=== PATIENT | female | born 1950 ===

== ENCOUNTER 2019-10-17 18:00 | Inpatient (IN) | payer MEDICARE ==
[2019-10-17] MEDS ORDERED: PROAIR HFA8.5 G1 INH (18:18)
[2019-10-17] MEDS ORDERED: AMITRIPTYLINE100 MG PO (18:18)
[2019-10-17] MEDS ORDERED: STERAPRED 5MG 65 M1 PO (18:19)
[2019-10-17] MEDS ORDERED: OXYCODONE HCL E20 MG PO (18:21)
[2019-10-17] MEDS ORDERED: STERAPRED DS 1010 MG PO (18:40)
--- NOTE | 2019-10-17 18:44 | NUR ---
CALLED AND SPOKE WITH MARCY COTTRELL AND NOTIFIED HIM THAT PT HAS ARRIVED TO FLOOR. HE STATED TO ORDER DEXAMETHASONE 6MG PO ONE TIME. I VERBALIZED UNDERSTANDING. PT ALERT AND ORIENTED AND UPADLIB. O2 AT 4L VIA NC. WILL CONTINUE TO MONITOR.
--- NOTE | 2019-10-17 19:30 | NUR ---
PT IN BED, AAO X 2, RESP EVEN AND UNLABORED, NO DISTRESS NOTED, CL IN REACH, SR UP X 2.
[2019-10-17 20:29] VITALS: BP 111/81
[2019-10-18 03:42] VITALS: BP 137/76
[2019-10-18 06:20] LABS: HEMATOCRIT 33.8 % (36.0-48.0); HEMOGLOBIN 11.5 g/dL (12-16); MCH 34.5 pg (26.0-34.0); MCV 101.5 fL (80.0-100.0); MEAN PLATELET VOLUME 11.4 fL (7.4-10.4); RBC 3.33 10x6/uL (4.00-5.40); RDW 14.6 % (11.5-14.5); WBC 2.8 10x3/uL (4.8-10.8)
[2019-10-18 06:25] LABS: PLATELET COUNT 41 10x3/uL (130-400)
[2019-10-18 06:37] LABS: APTT 35.7 SECONDS (22.8-39.4); INR 1.67 (0.85-1.17); PROTIME 19.5 SECONDS (11.6-15.0)
[2019-10-18 06:47] LABS: LYMPHOCYTES 5 % (15-50); NEUTROPHILS 95 % (40-80)
[2019-10-18 06:48] LABS: PLATELET ESTIMATE DECREASED
[2019-10-18 06:53] LABS: CALC OSMOLALITY 270 mosm/kg (275-300); CALCIUM 7.6 mg/dL (8.5-10.1); CARBON DIOXIDE 22.6 mmol/L (21.0-32.0); CHLORIDE - SERUM 107 mmol/L (98-107); CREATININE - SERUM 0.7 mg/dL (0.6-1.3); GLUCOSE 132 mg/dL (74-106); MAGNESIUM - SERUM 1.8 mg/dL (1.8-2.4); POTASSIUM - SERUM 4.2 mmol/L (3.5-5.1); SODIUM 135 mmol/L (136-145); UREA NITROGEN 10 mg/dL (7-18); eGFR NON AFRICAN AMERICAN 88 mL/min (90-120)
[2019-10-18 09:35] VITALS: BP 107/58
[2019-10-18 17:25] LABS: BILIRUBIN NEGATIVE (NEGATIVE); KETONE NEGATIVE (NEGATIVE); NITRITE NEGATIVE (NEGATIVE); UROBILINOGEN NORMAL (NORMAL)
--- NOTE | 2019-10-18 18:04 | NUR ---
PT TALKING TO DAUGHTER ON CELL PHONE. PT UPSET BECAUSE DAUGHTER CANNOT BRING ITEMS FROM HOME FOR PT. PT IS COVID POSITIVE. ITEMS ARE WORK RELATED FOR PT. DAUGHTER DOES NOT WANT TO RISK EXPOSURE TO VIRUS. ATTEMPT TO CALM PT BUT PT GETS EMOTIONAL.
--- NOTE | 2019-10-18 19:25 | NUR ---
PATIENT IS RESTING IN BED. SHE IS ALERT AND ORIENTED. SHE IS SHORT OF BREATH WITH EXERTION. SHE IS ON ROOM AIR. WE WILL CONTINUE TO MONITOR HER RESPIRATORY STATUS.
[2019-10-19 01:22] VITALS: BP 132/68
--- NOTE | 2019-10-19 03:11 | NUR ---
PATIENT IS SLEEPING. SHE HAS GARBLE SPEECH. SHE CAN NOT ANSWER YES AND NO. I TALKED WITH THE CHARGE NURSE, AND SHE SAID NOT TO PUT THE NG TUBE BACK IN BECAUSE SHE WILL JUST PULL IT OUT AGAIN SINCE SHE IS CONFUSED.
--- NOTE | 2019-10-19 03:23 | NUR ---
PATIENT GOT UP TO THE BATHROOM AND PULLED OUT IV. BLOOD WAS ALL OVER FLOOR AND GOWN. GOWN CHANGED, AND FLOOR CLEANED UP. I HAVE ASKED FOR ASSISTANCE FOR NEW IV FOR IV FLUIDS AND ANTIBIOTICS. WE WILL CONTINUE TO MONITOR HER RESPIRATORY STATUS.
[2019-10-19 04:55] VITALS: BP 140/96
[2019-10-19 06:27] LABS: BASOPHILS 0.2 % (0-2); EOSINOPHILS 0 % (0-7); HEMATOCRIT 38.1 % (36.0-48.0); HEMOGLOBIN 12.8 g/dL (12-16); IMMATURE GRANULOCYTES 0.9 % (0-5); LYMPHOCYTES 5.6 % (15-50); MCH 34.4 pg (26.0-34.0); MCHC 33.6 g/dL (31.0-37.0); MCV 102.4 fL (80.0-100.0); MEAN PLATELET VOLUME 10.1 fL (7.4-10.4); MONOCYTES 4.1 % (2-11); NEUTROPHILS 89.2 % (40-80); PLATELET COUNT 55 10x3/uL (130-400); RBC 3.72 10x6/uL (4.00-5.40); RDW 14.8 % (11.5-14.5); WBC 4.6 10x3/uL (4.8-10.8)
[2019-10-19 06:40] LABS: ANION GAP 8.8 mmol/L (8-16); CALCIUM 8.6 mg/dL (8.5-10.1); CARBON DIOXIDE 25.1 mmol/L (21.0-32.0); POTASSIUM - SERUM 3.9 mmol/L (3.5-5.1)
[2019-10-19 06:41] LABS: CREATININE - SERUM 0.9 mg/dL (0.6-1.3); PHOSPHOROUS 2.6 mg/dL (2.5-4.9)
[2019-10-19 07:08] LABS: PLATELET ESTIMATE DECREASED
--- NOTE | 2019-10-19 07:20 | NUR ---
PT LOST IV ACCESS OVERNIGHT. VASCULAR NURSE UNAVAILABLE. CONTACTED ER BUT CHARGE NURSE ANGY SAYS SHE CANNOT SENT ANYONE AT THIS TIME. WILL CALL HER BACK IN 2 HOURS TO SEE IF SHE CAN SEND ANYONE
--- NOTE | 2019-10-19 08:03 | NUR ---
CONTACTED MADELYN HILL REGARDING PT LOSS OF IV. NO NEW ORDERS AT THIS TIME.
[2019-10-19 09:39] VITALS: BP 124/48
[2019-10-19 11:58] VITALS: BP 137/56
[2019-10-19 13:36] LABS: C-REACTIVE PROTEIN 4.3 mg/dL (0.0-0.9)
--- NOTE | 2019-10-19 13:39 | NUR ---
unable to collect sputum from pt at this time.
--- NOTE | 2019-10-19 14:07 | NUR ---
NOTIFIED MADELYN THAT PT LAMAZ HICKEY D-DIMER IS 5.79
--- NOTE | 2019-10-19 18:50 | NUR ---
REPORT RECEIVED, PT CARE ASSUMED. INTRODUCED SELF AND WROTE NAME ON BOARD. PT SITTING UP IN BED, WATCHING TV, AAOX4. REQUESTING ICE CREAM, PROVIDED. DENIES ANY OTHER NEEDS AT THIS TIME. BED IN LOWEST, SRX3, CALL LIGHT WITHIN REACH. WILL CTM.
[2019-10-20 02:00] VITALS: BP 137/60
[2019-10-20 06:26] LABS: BASOPHILS 0.3 % (0-2); EOSINOPHILS 0 % (0-7); HEMATOCRIT 38.4 % (36.0-48.0); HEMOGLOBIN 12.7 g/dL (12-16); IMMATURE GRANULOCYTES 0.9 % (0-5); LYMPHOCYTES 8.6 % (15-50); MCH 34.2 pg (26.0-34.0); MCHC 33.1 g/dL (31.0-37.0); MCV 103.5 fL (80.0-100.0); MEAN PLATELET VOLUME 11.8 fL (7.4-10.4); MONOCYTES 8.9 % (2-11); NEUTROPHILS 81.3 % (40-80); RBC 3.71 10x6/uL (4.00-5.40); RDW 14.9 % (11.5-14.5); WBC 3.5 10x3/uL (4.8-10.8)
[2019-10-20 06:30] LABS: PLATELET COUNT 49 10x3/uL (130-400)
[2019-10-20 06:53] LABS: CALC OSMOLALITY 280 mosm/kg (275-300); CALCIUM 8.2 mg/dL (8.5-10.1); CARBON DIOXIDE 23.8 mmol/L (21.0-32.0); CHLORIDE - SERUM 111 mmol/L (98-107); CREATININE - SERUM 0.8 mg/dL (0.6-1.3); GLUCOSE 115 mg/dL (74-106); PHOSPHOROUS 2.6 mg/dL (2.5-4.9); POTASSIUM - SERUM 4.2 mmol/L (3.5-5.1); SODIUM 140 mmol/L (136-145); UREA NITROGEN 15 mg/dL (7-18); eGFR NON AFRICAN AMERICAN 76 mL/min (90-120)
[2019-10-20 07:08] LABS: PLATELET ESTIMATE DECREASED
[2019-10-20 08:21] VITALS: BP 127/69
[2019-10-20 15:31] LABS: ALT (SGPT) 46 U/L (10-68)
--- NOTE | 2019-10-20 18:12 | NUR ---
PT RECEIVED SHOWER, CHANGE GOWN AND BEDDING CHANGE.
[2019-10-20 20:58] VITALS: BP 111/44
[2019-10-21 00:30] VITALS: BP 123/48
[2019-10-21 05:01] VITALS: BP 128/64
[2019-10-21 08:46] VITALS: BP 126/67
[2019-10-21 10:13] LABS: BASOPHILS 0.2 % (0-2); EOSINOPHILS 0 % (0-7); HEMATOCRIT 38.5 % (36.0-48.0); HEMOGLOBIN 12.9 g/dL (12-16); IMMATURE GRANULOCYTES 1.8 % (0-5); MCHC 33.5 g/dL (31.0-37.0); MCV 101.6 fL (80.0-100.0); MEAN PLATELET VOLUME 9.9 fL (7.4-10.4); MONOCYTES 8.4 % (2-11); NEUTROPHILS 82.6 % (40-80); RBC 3.79 10x6/uL (4.00-5.40); RDW 14.8 % (11.5-14.5)
[2019-10-21 10:16] LABS: PLATELET COUNT 62 10x3/uL (130-400); WBC 5.1 10x3/uL (4.8-10.8)
[2019-10-21 10:38] LABS: ANION GAP 11.7 mmol/L (8-16); CARBON DIOXIDE 24.3 mmol/L (21.0-32.0); CREATININE - SERUM 0.9 mg/dL (0.6-1.3); MAGNESIUM - SERUM 1.9 mg/dL (1.8-2.4); PHOSPHOROUS 2.8 mg/dL (2.5-4.9)
[2019-10-21 11:17] VITALS: BP 142/44
--- NOTE | 2019-10-21 19:00 | NUR ---
EVENING ROUNDS COMPLETE. PT SITTING UP IN BED, AAOX4. NO SIGNS OF DISTRESS. PT DENIES ANY PAIN OR NEEDS AT THIS TIME. CL IN REACH, BED IN LOWEST POSITION.
[2019-10-21 20:00] VITALS: BP 138/49
[2019-10-22 04:00] VITALS: BP 148/63
[2019-10-22 06:13] LABS: BASOPHILS 0 % (0-2); EOSINOPHILS 0 % (0-7); HEMATOCRIT 37.1 % (36.0-48.0); HEMOGLOBIN 12.7 g/dL (12-16); IMMATURE GRANULOCYTES 1.5 % (0-5); LYMPHOCYTES 9.6 % (15-50); MCH 34.2 pg (26.0-34.0); MCHC 34.2 g/dL (31.0-37.0); MEAN PLATELET VOLUME 10.9 fL (7.4-10.4); MONOCYTES 8.1 % (2-11); NEUTROPHILS 80.8 % (40-80); PLATELET COUNT 54 10x3/uL (130-400); RBC 3.71 10x6/uL (4.00-5.40); RDW 14.7 % (11.5-14.5)
[2019-10-22 06:20] LABS: WBC 3.3 10x3/uL (4.8-10.8)
[2019-10-22 06:33] LABS: ALT (SGPT) 46 U/L (10-68); CALC OSMOLALITY 277 mosm/kg (275-300); CALCIUM 8.3 mg/dL (8.5-10.1); CHLORIDE - SERUM 108 mmol/L (98-107); CREATININE - SERUM 0.8 mg/dL (0.6-1.3); GLUCOSE 106 mg/dL (74-106); PHOSPHOROUS 3.2 mg/dL (2.5-4.9); POTASSIUM - SERUM 4.3 mmol/L (3.5-5.1); SODIUM 138 mmol/L (136-145); UREA NITROGEN 17 mg/dL (7-18); eGFR NON AFRICAN AMERICAN 76 mL/min (90-120)
[2019-10-22 07:58] LABS: PLATELET ESTIMATE DECREASED
[2019-10-22 08:33] VITALS: BP 132/47
--- NOTE | 2019-10-22 08:48 | NUR ---
PT SITTING UP IN BED, RR EVEN AND UNLABORED. DENIES NEEDS OR PAIN AT THIS TIME. CALL LIGHT WTIHIN REACH. BED IN LOWEST POSITION. R. UPPER ARM MIDLINE DRESSING IS BLOODY, MEDICAL ASSISTANT DERMATOLOGY NURSE STATES SITE WAS BLEEDING LAST NIGHT. WILL CHANGE DRESSING. WILL CONTINUE TO MONITOR.
[2019-10-22 13:09] VITALS: BP 141/54
--- NOTE | 2019-10-22 17:02 | NUR ---
I have reviewed this patient and I concur with the Shift Assessment completed by the Licensed Practical Nurse today this shift.
--- NOTE | 2019-10-22 18:14 | NUR ---
PT WAS TO HAVE ABDOMEN COMPLETE U/S. SHE WAS SUPPOSED TO BE HELD NPO AFTER LUNCH AT 1330 AND BE DONE IN 6 HOURS. ELISA FROM THE FLOOR CALLED X-RAY AND TALKED TO RT BENJAMIN THAT PT HAD EATEN DINNER AND WAS BEING HELD NPO AT MIDNIGHT FOR U/S TO BE DONE 1ST THING TOMORROW MORNING. NOTED ABOVE. VAISHALI, RDMS [id number]
--- NOTE | 2019-10-22 19:00 | NUR ---
REPORT RECEIVED, WILL CONTINUE POC. PATIENT IS AAOX4, LYING ON RIGHT SIDE. NO S/S OF DISTRESS OBSERVED, RR EVEN AND UNLABORED ON 5.5L HFNC. MIDLINE TO RIGHT UPPER ARM INFUSING NS @ KVO. PATIENT DENIES NEEDS AT THIS TIME. CL IN REACH, BED LOCKED AND LOWERED. WILL CTM.
[2019-10-22 20:00] VITALS: BP 127/41
[2019-10-23] VITALS: BP 125/42
--- NOTE | 2019-10-23 01:18 | NUR ---
BEGAN ADMINISTERING FFP @0100 VS 137/61 HR 67 RR 20 O2 96% TEMP 98.9 15MIN VS AND POST TRANSFUSION 135/61 HR 65 RR 18 O2 96% TEMP 98.8
[2019-10-23 04:00] VITALS: BP 140/63
[2019-10-23 06:17] LABS: BASOPHILS 0 % (0-2); EOSINOPHILS 0 % (0-7); HEMATOCRIT 36.9 % (36.0-48.0); HEMOGLOBIN 12.4 g/dL (12-16); IMMATURE GRANULOCYTES 1.1 % (0-5); LYMPHOCYTES 9.7 % (15-50); MCH 33.9 pg (26.0-34.0); MCHC 33.6 g/dL (31.0-37.0); MCV 100.8 fL (80.0-100.0); MEAN PLATELET VOLUME 9.3 fL (7.4-10.4); MONOCYTES 5.4 % (2-11); NEUTROPHILS 83.8 % (40-80); RBC 3.66 10x6/uL (4.00-5.40); RDW 14.8 % (11.5-14.5); WBC 2.8 10x3/uL (4.8-10.8)
[2019-10-23 06:49] LABS: PLATELET COUNT 41 10x3/uL (130-400)
[2019-10-23 07:26] LABS: ALBUMIN 2.1 g/dL (3.4-5.0); ANION GAP 10.3 mmol/L (8-16); BILIRUBIN - TOTAL 1.53 mg/dL (0.2-1.3); CALCIUM 7.6 mg/dL (8.5-10.1); CARBON DIOXIDE 21.7 mmol/L (21.0-32.0); CREATININE - SERUM 0.9 mg/dL (0.6-1.3); PROTEIN - SERUM 6.7 g/dL (6.4-8.2)
[2019-10-23 11:14] VITALS: BP 130/63
[2019-10-23 14:12] VITALS: Wt 92.5 kg
[2019-10-23 16:52] VITALS: BP 139/69
--- NOTE | 2019-10-23 19:00 | NUR ---
REPORT RECEIVED, WILL CONTINUE POC. PATIENT IS AAXO4, LYING ON RIDE SIDE. NO S/S OF DISTRESS OBSERVED, RR EVEN AND UNLABORED ON 4L O2 VIA NC. PATIENT DENIES NEEDS AT THIS TIME. CL IN REACH, BED LOCKED AND LOWERED. COVID-19 ISOLATION PRECAUTIONS FOLLOWED. WILL CTM.
[2019-10-23 20:00] VITALS: BP 139/53
[2019-10-24 04:00] VITALS: BP 147/58
[2019-10-24 05:54] LABS: BASOPHILS 0 % (0-2); EOSINOPHILS 0 % (0-7); HEMATOCRIT 35.9 % (36.0-48.0); HEMOGLOBIN 12.1 g/dL (12-16); IMMATURE GRANULOCYTES 1.2 % (0-5); LYMPHOCYTES 12.9 % (15-50); MCH 34.4 pg (26.0-34.0); MCHC 33.7 g/dL (31.0-37.0); MONOCYTES 7.1 % (2-11); NEUTROPHILS 78.8 % (40-80); RBC 3.52 10x6/uL (4.00-5.40); RDW 15.1 % (11.5-14.5); WBC 2.6 10x3/uL (4.8-10.8)
[2019-10-24 06:03] LABS: PLATELET COUNT 39 10x3/uL (130-400)
[2019-10-24 06:23] LABS: INR 1.75 (0.85-1.17); PROTIME 20.2 SECONDS (11.6-15.0)
[2019-10-24 06:25] LABS: ALBUMIN 1.9 g/dL (3.4-5.0); BILIRUBIN - TOTAL 1.48 mg/dL (0.2-1.3); CALCIUM 7.4 mg/dL (8.5-10.1); CARBON DIOXIDE 25.1 mmol/L (21.0-32.0); CREATININE - SERUM 0.9 mg/dL (0.6-1.3); POTASSIUM - SERUM 4.1 mmol/L (3.5-5.1); PROTEIN - SERUM 6.2 g/dL (6.4-8.2)
[2019-10-24 06:44] LABS: D-DIMER-QUANTITATIVE 2.96 ug/mLFEU (0.20-0.54)
--- NOTE | 2019-10-24 08:04 | NUR ---
PT LAYING SUPINE, RR EVEN AND UNLABORED. NO DISTRESS NOTED. SPOKE WITH DAUGHTER AND UPDATED ON POC. BED IN LOWEST POSITION. CALL LIGHT WTIHIN REACH. BED IN LOWEST POSITION.
[2019-10-24 12:03] VITALS: BP 121/83
--- NOTE | 2019-10-24 13:25 | NUR ---
I have reviewed this patient and I concur with the Shift Assessment completed by the Licensed Practical Nurse today this shift.
--- NOTE | 2019-10-24 19:00 | NUR ---
REPORT RECEIVED, WILL CONTINUE POC. PATIENT IS AAOX4, LYING ON RIGHT SIDE. NO S/S OF DISTRESS OBSERVED, RR EVEN AND UNLABORED ON 3L O2 VIA NC. MIDLINE TO RT UPPER ARM, PATENT. PATIENT DENIES NEEDS AT THIS TIME. CL IN REACH, BED LOCKED AND LOWERED. COVID-19 PRECAUTIONS MAINTAINED. WILL CTM.
[2019-10-24 22:44] VITALS: BP 127/65
[2019-10-25] VITALS: BP 136/68
[2019-10-25 04:00] VITALS: BP 147/64
[2019-10-25 05:40] LABS: BASOPHILS 0 % (0-2); EOSINOPHILS 0 % (0-7); HEMATOCRIT 37.4 % (36.0-48.0); HEMOGLOBIN 12.5 g/dL (12-16); IMMATURE GRANULOCYTES 1.3 % (0-5); LYMPHOCYTES 10.5 % (15-50); MCH 34.1 pg (26.0-34.0); MCHC 33.4 g/dL (31.0-37.0); MCV 101.9 fL (80.0-100.0); MEAN PLATELET VOLUME 9.7 fL (7.4-10.4); MONOCYTES 10.1 % (2-11); NEUTROPHILS 78.1 % (40-80); RBC 3.67 10x6/uL (4.00-5.40); RDW 15.3 % (11.5-14.5); WBC 2.4 10x3/uL (4.8-10.8)
[2019-10-25 05:52] LABS: PLATELET COUNT 35 10x3/uL (130-400)
[2019-10-25 06:00] LABS: ALBUMIN 1.9 g/dL (3.4-5.0); ALKALINE PHOSPHATASE 128 U/L (30-120); ALT (SGPT) 39 U/L (10-68); BILIRUBIN - TOTAL 1.28 mg/dL (0.2-1.3); CALC OSMOLALITY 282 mosm/kg (275-300); CALCIUM 7.8 mg/dL (8.5-10.1); CARBON DIOXIDE 22.1 mmol/L (21.0-32.0); CHLORIDE - SERUM 112 mmol/L (98-107); CREATININE - SERUM 0.8 mg/dL (0.6-1.3); GLUCOSE 130 mg/dL (74-106); POTASSIUM - SERUM 4.2 mmol/L (3.5-5.1); PROTEIN - SERUM 6.3 g/dL (6.4-8.2); SODIUM 139 mmol/L (136-145); UREA NITROGEN 22 mg/dL (7-18); eGFR NON AFRICAN AMERICAN 76 mL/min (90-120)
[2019-10-25 08:45] VITALS: BP 136/73
[2019-10-25 09:02] LABS: PLATELET ESTIMATE DECREASED
--- NOTE | 2019-10-25 11:45 | NUR ---
Nutrition Follow-up: Patient remains in covid isolation at this time. Patient is confused per MD notes. Diet: Regular PO intake: 50-100% x 3 meals recorded 10/21/19, none recorded recently Last BM: none recorded since admit. WT: 203# (10/24/19) Meds noted: NS@50, zinc sulfate Labs noted: Alb 1.9(L), Alk Phos 128(H), Glu 130(H) Recommend continue current diet. RD following.
--- NOTE | 2019-10-25 15:12 | NUR ---
I have reviewed this patient and I concur with the Shift Assessment completed by the Licensed Practical Nurse today this shift.
[2019-10-25 20:59] VITALS: BP 138/63
--- NOTE | 2019-10-26 03:57 | NUR ---
I have reviewed this patient and I concur with the Shift Assessment completed by the Licensed Practical Nurse today this shift.
[2019-10-26 06:14] LABS: ALKALINE PHOSPHATASE 121 U/L (30-120); ALT (SGPT) 37 U/L (10-68); CALC OSMOLALITY 284 mosm/kg (275-300); CALCIUM 7.8 mg/dL (8.5-10.1); CARBON DIOXIDE 24.3 mmol/L (21.0-32.0); CHLORIDE - SERUM 112 mmol/L (98-107); CREATININE - SERUM 0.8 mg/dL (0.6-1.3); GLUCOSE 96 mg/dL (74-106); POTASSIUM - SERUM 4.2 mmol/L (3.5-5.1); SODIUM 141 mmol/L (136-145); UREA NITROGEN 23 mg/dL (7-18); eGFR NON AFRICAN AMERICAN 76 mL/min (90-120)
[2019-10-26 06:35] LABS: HEMATOCRIT 35.8 % (36.0-48.0); HEMOGLOBIN 11.9 g/dL (12-16); MCH 34.4 pg (26.0-34.0); MCHC 33.2 g/dL (31.0-37.0); MCV 103.5 fL (80.0-100.0); MEAN PLATELET VOLUME 11.2 fL (7.4-10.4); RBC 3.46 10x6/uL (4.00-5.40); RDW 15.4 % (11.5-14.5); WBC 2.6 10x3/uL (4.8-10.8)
[2019-10-26 07:12] LABS: PLATELET COUNT 37 10x3/uL (130-400)
[2019-10-26 08:53] LABS: LYMPHOCYTES 18 % (15-50); MONOCYTES 5 % (2-11); NEUTROPHILS 77 % (40-80); PLATELET ESTIMATE DECREASED
[2019-10-26 09:07] VITALS: BP 129/50
--- NOTE | 2019-10-26 09:28 | NUR ---
GAVE PT SCHEDULED MEDS, PT LAYING IN BEED EATING BREAKFAST, PT DENIES PAIN OR NEEDS AT THIS TIME, O2 IN USE PER NC, NO SHORTNESS OF BREATH NOTED, SR UP X2, CALL LIGHT IN REACH, BED LOW AND LOCKED, WILL MONITOR
[2019-10-26 13:44] VITALS: BP 121/61
--- NOTE | 2019-10-26 15:18 | NUR ---
STARTED NEW 20 GAUGE IV TO RIGHT FOREARM, PT TOLERATED WELL, PT IS RESTING IN BED, PT IS NOT ASKING TO LEAVE AT THIS TIME, WILL MONITOR
--- NOTE | 2019-10-26 15:43 | NUR ---
PT RESTIN GIN BED ON RIGHT SIDE, PT TOOK SCHEDULED MEDS WITHOUT DIFFICULTY, PT DENIES PAIN OR NEEDS, WILL MONITOR, SR UP X2, CALL LIGHT IN REACH
[2019-10-26 16:50] VITALS: BP 130/50
--- NOTE | 2019-10-26 17:00 | NUR ---
TALKED WITH PT AT GREAT LENGTHS ABOUT NOT BEING ABLE TO BREATH WITHOUT OXYGEN, EXPLAINED TO PT THAT SHE IS GETTING BETTER, THEN PT STATES THE REAL REASON SHE IS UPSET IS SHE NEEDS A PHONE ELECTROMEDICAL EQUIPMENT REPAIRER AND SOME COLORING PAGES WITH PENCILS, EXPLAINED I WOULD TALK WITH DAUGHTER ABOUT BRING THEM, PT VERBALIZED UNDERSTANDING
--- NOTE | 2019-10-26 17:12 | NUR ---
TALKED WITH DAUGHTER ABOUT PT WANTING TO GIVE UP, EXPLAINED TO HER THAT I HAVE BEEN IN TALKING WITH HER, PT JUST WANTS A PHONE PHYSICAL THERAPY NURSE AND SOME COLORING BOOKS WITH PENSILS, DAUGHTER VERBALIZED SHE WOULD TRY AND BRING THEM UP TOMORROW
[2019-10-26 20:00] VITALS: BP 128/54
--- NOTE | 2019-10-26 20:00 | NUR ---
INITIAL ROUNDS COMPLETED AND PT RESTING IN BED. IVF INFUSING TO EMMY MIDLINE NS @ 50ML/HR. PT ALERT/ORIENTED AND VOICING NO NEEDS. O2 @ 3L/NC WITH NONLABORED RESPIRATIONS. SPUTUM SPECIMEN NEEDED, BUT PT STATES NOT COUGHING ANYTHING UP. CPOC.
[2019-10-27] VITALS: BP 138/60
[2019-10-27 06:52] LABS: BASOPHILS 0 % (0-2); EOSINOPHILS 0.3 % (0-7); HEMATOCRIT 37.3 % (36.0-48.0); HEMOGLOBIN 12.5 g/dL (12-16); LYMPHOCYTES 9.9 % (15-50); MCH 34.3 pg (26.0-34.0); MCHC 33.5 g/dL (31.0-37.0); MCV 102.5 fL (80.0-100.0); MEAN PLATELET VOLUME 11.4 fL (7.4-10.4); MONOCYTES 8.5 % (2-11); NEUTROPHILS 80.3 % (40-80); RBC 3.64 10x6/uL (4.00-5.40); RDW 15.1 % (11.5-14.5); WBC 2.9 10x3/uL (4.8-10.8)
[2019-10-27 06:57] LABS: ALKALINE PHOSPHATASE 121 U/L (30-120); ALT (SGPT) 38 U/L (10-68); BILIRUBIN - TOTAL 1.58 mg/dL (0.2-1.3); CALC OSMOLALITY 285 mosm/kg (275-300); CARBON DIOXIDE 24.5 mmol/L (21.0-32.0); CHLORIDE - SERUM 112 mmol/L (98-107); CREATININE - SERUM 0.8 mg/dL (0.6-1.3); GLUCOSE 112 mg/dL (74-106); POTASSIUM - SERUM 4.2 mmol/L (3.5-5.1); PROTEIN - SERUM 6.1 g/dL (6.4-8.2); SODIUM 141 mmol/L (136-145); UREA NITROGEN 24 mg/dL (7-18); eGFR NON AFRICAN AMERICAN 76 mL/min (90-120)
[2019-10-27 07:06] LABS: PLATELET COUNT 37 10x3/uL (130-400)
[2019-10-27 08:28] LABS: PLATELET ESTIMATE DECREASED
--- NOTE | 2019-10-27 08:49 | NUR ---
PT TOOK AM MEDS WITHOUT DIFFICULTY, PT STATES SHE FEELS BETTER TODAY, NO OTHER NEEDS VOICED AT THIS TIME, SR UP X2, BED LOW AND LOCKED WILL MONITOR
[2019-10-27 09:31] VITALS: BP 121/47
[2019-10-27 13:30] VITALS: BP 115/59
[2019-10-27 16:22] VITALS: BP 125/49
--- NOTE | 2019-10-27 19:00 | NUR ---
AROUSES EASILY OX4 BED LOW AND LOCKED PTS NEEDS ARE SEEN TO
--- NOTE | 2019-10-28 04:52 | NUR ---
I have reviewed this patient and I concur with the Shift Assessment completed by the Licensed Practical Nurse today this shift.
[2019-10-28 07:20] LABS: BASOPHILS 0 % (0-2); EOSINOPHILS 0.2 % (0-7); HEMATOCRIT 40.9 % (36.0-48.0); HEMOGLOBIN 13.5 g/dL (12-16); MCH 34.1 pg (26.0-34.0); MCV 103.3 fL (80.0-100.0); MEAN PLATELET VOLUME 11.2 fL (7.4-10.4); MONOCYTES 9.2 % (2-11); NEUTROPHILS 81.6 % (40-80); RBC 3.96 10x6/uL (4.00-5.40); RDW 15.4 % (11.5-14.5)
[2019-10-28 07:35] LABS: WBC 4.1 10x3/uL (4.8-10.8)
[2019-10-28 07:39] LABS: PLATELET COUNT 48 10x3/uL (130-400)
[2019-10-28 09:41] LABS: ALBUMIN 2.2 g/dL (3.4-5.0); ANION GAP 9.8 mmol/L (8-16); BILIRUBIN - TOTAL 1.69 mg/dL (0.2-1.3); CALCIUM 8.4 mg/dL (8.5-10.1); CARBON DIOXIDE 24.4 mmol/L (21.0-32.0); CREATININE - SERUM 0.9 mg/dL (0.6-1.3); POTASSIUM - SERUM 4.2 mmol/L (3.5-5.1); PROTEIN - SERUM 6.6 g/dL (6.4-8.2)
--- NOTE | 2019-10-28 12:21 | MORECARE ---
CASE MANAGEMENT DISCHARGE SUMMARY PATIENT: ALMAZ HICKEY UNIT: [id number] ADM DATE: 10/17/19 AGE: 69 : 52 SEX: F ROOM/BED: D.2135 AUTHOR: CONY MOLINA PHYSICIAN: REFERRING PHYSICIAN: JAKE PEREZ MD DATE OF SERVICE: 10/28/19 Discharge Plan Patient Name: ALMAZ HICKEY Facility: [facility]:[place] : 1950 Planned Disposition: Anticipated Discharge Date: Discharge Date: Expected LOS: Initial Reviewer: [email or web address] Initial Review Date: 10/17/2019 Generated: 10/28/19 1:21 pm External Providers [facility] Nataliya Next Contact Date: Service Request Date: Service Type: Resolution: Reviewer: Comments: Patient Name: ALMAZ HICKEY Page [phone] at 1221 All edits/amendments must be made on the electronic document DICTATION DATE: 10/28/19 1221 RACK WASHER: JIMBO 10/28/19 1221 RPT#: [id number] DC DATE: STATUS: ADM IN [facility] [address] [place] [address] END OF REPORT
--- NOTE | 2019-10-28 12:28 | MORECARE ---
CASE MANAGEMENT DISCHARGE SUMMARY PATIENT: ALMAZ HICKEY UNIT: [id number] ADM DATE: 10/17/19 AGE: 69 : 52 SEX: F ROOM/BED: D.2135 AUTHOR: OCNY MOLINA PHYSICIAN: REFERRING PHYSICIAN: JAKE PEREZ MD DATE OF SERVICE: 10/28/19 Discharge Plan Patient Name: ALMAZ HICKEY Facility: [facility]:[place] : 1950 Planned Disposition: Anticipated Discharge Date: Discharge Date: Expected LOS: Initial Reviewer: [email or web address] Initial Review Date: 10/17/2019 Generated: 10/28/19 1:28 pm External Providers External Provider: [facility] Nataliya Next Contact Date: Service Request Date: Service Type: Resolution: Reviewer: Comments: Last DP export: 10/28/19 11:21 a Patient Name: ALMAZ HICKEY Page 11322 at 1228 All edits/amendments must be made on the electronic document DICTATION DATE: 10/28/19 1228 JOURNEYMAN MECHANIC: JIMBO 10/28/19 1228 RPT#: [id number] AR DATE: STATUS: ADM IN [facility] [address] [place] [address] END OF REPORT
--- NOTE | 2019-10-28 17:55 | MORECARE ---
CASE MANAGEMENT DISCHARGE SUMMARY PATIENT: ALMAZ HICKEY UNIT: [id number] ADM DATE: 10/17/19 AGE: 69 : 52 SEX: F ROOM/BED: D.3505 AUTHOR: CONY MOLINA PHYSICIAN: REFERRING PHYSICIAN: JAKE PEREZ MD DATE OF SERVICE: 10/28/19 Discharge Plan Patient Name: ALMAZ HICKEY Facility: [facility]:[place] : 1950 Planned Disposition: Anticipated Discharge Date: Discharge Date: Expected LOS: Initial Reviewer: [email or web address] Initial Review Date: 10/17/2019 Generated: 10/28/19 6:55 pm External Providers External Provider: Merle Next Contact Date: Service Request Date: Service Type: Resolution: Reviewer: Comments: Last DP export: 10/28/19 11:28 a Patient Name: ALMAZ HICKEY Page [phone] at 1755 All edits/amendments must be made on the electronic document DICTATION DATE: 10/28/191754 COMMISSIONED SALES ASSOCIATE: JIMBO 10/28/191754 RPT#: [id number] DC DATE: STATUS: ADM IN [facility] [address] [place] [address] END OF REPORT
--- NOTE | 2019-10-28 18:08 | MORECARE ---
CASE MANAGEMENT DISCHARGE SUMMARY PATIENT: ALMAZ HICKEY UNIT: [id number] ADM DATE: 10/17/19 AGE: 69 : 52 SEX: F ROOM/BED: D.7762 AUTHOR: TRACY,DOC PHYSICIAN: REFERRING PHYSICIAN: JAKE PEREZ MD DATE OF SERVICE: 10/28/19 Discharge Plan Patient Name: ALMAZ HICKEY Facility: [facility]:[place] : 1950 Planned Disposition: Anticipated Discharge Date: Discharge Date: Expected LOS: Initial Reviewer: [email or web address] Initial Review Date: 10/17/2019 Generated: 10/28/19 7:07 pm Comments DCP- Discharge Planning Updated by [email or web address]: Deidra Brewer on 10/28/19 5:[address] Patient Name: ALMAZ HICKEY Admission Status: Elective Accout number: [id number] Admission Date: 10-17-2019 : 1950 Admission Diagnosis:COVID-19 Attending: ANA, Current LOS: 11 Anticipated DC Date: Planned Disposition: Primary Insurance: HU[employer]NA CHOICE PPO MCR ADVANT Discharge Planning Comments: CM called patient room to complete initial dc planning assessment. CM educated patient on the CM role and verbal consent given by patient to complete assessment. CM verified patient's address, phone number, and emergency contact phone numbers. Patient lives at home alone and is independent. At discharge patient plans to return home and feels this is a safe discharge. CM discussed availability of home health, rehab services, and medical equipment. Patient states she has skyla increasingly weak while in the hospital, and would like home health. Denies any use for ambulation aides. CM anticipates home oxygen use. Pt is in agreement for home oxygen if she needs it. SAROJ verbalized for [facility] and [facility]. CM spoke with Anna at [phone] from [facility] and faxed referral. CM also spoke to Raffaele at [facility] at [phone] for referral. Raffaele states an 0xygen tank will be present within the hour. Transportation provider at discharge will be family. CM will continue to follow and will assist as needed with dc plans/needs. Websphere Message Broker Developer: Deidra Brewer Last DP export: 10/28/19 4:56 p Patient Name: ALMAZ HICKEY Page [id number] at 1808 All edits/amendments must be made on the electronic document DICTATION DATE: 10/28/191807 PROTOTYPE ENGINEER MANAGER: JIMBO 10/28/191807 RPT#: [id number] DC DATE: STATUS: ADM IN [facility] [address] [place] [address] END OF REPORT
--- NOTE | 2019-10-28 18:15 | MORECARE ---
CASE MANAGEMENT DISCHARGE SUMMARY PATIENT: ALMAZ HICKEY UNIT: [id number] ADM DATE: 10/17/19 AGE: 69 : 52 SEX: F ROOM/BED: D.3820 AUTHOR: TRACY,DOC PHYSICIAN: REFERRING PHYSICIAN: JAKE PEREZ MD DATE OF SERVICE: 10/28/19 Discharge Plan Patient Name: ALMAZ HICKEY Facility: [facility]:[place] : 1950 Planned Disposition: Anticipated Discharge Date: Discharge Date: Expected LOS: Initial Reviewer: [email or web address] Initial Review Date: 10/17/2019 Generated: 10/28/19 7:14 pm Comments DCP- Discharge Planning Updated by [email or web address]: Deidra Brewer on 10/28/19 5:[address] Patient Name: ALMAZ HICKEY Admission Status: Elective Accout number: [id number] Admission Date: 10-17-2019 : 1950 Admission Diagnosis:COVID-19 Attending: ANA, Current LOS: 11 Anticipated DC Date: Planned Disposition: Primary Insurance: [employer] CHOICE PPO MCR ADVANT Discharge Planning Comments: CM called patient room to complete initial dc planning assessment. CM educated patient on the CM role and verbal consent given by patient to complete assessment. CM verified patient's address, phone number, and emergency contact phone numbers. Patient lives at home alone and is independent. At discharge patient plans to return home and feels this is a safe discharge. CM discussed availability of home health, rehab services, and medical equipment. Patient states she has skyla increasingly weak while in the hospital, and would like home health. Denies any use for ambulation aides. CM anticipates home oxygen use. Pt is in agreement for home oxygen if she needs it. SAROJ verbalized for [facility] and [facility]. CM spoke with Anna at [phone] from [employer] [facility] and faxed referral. CM also spoke to Raffaele at [facility] at [phone] for referral. Raffaele states an 0xygen tank will be present within the hour. Transportation provider at discharge will be family. CM will continue to follow and will assist as needed with dc plans/needs. Hand Packager: Deidra Brewer DCPIA - Discharge Planning Initial Assessment Updated by [email or web address]: Deidra Brewer on 10/28/19 6:10 pm * Is the patient Alert and Oriented? Yes * How many steps to enter\exit or inside your home? 0/0 * PCP urvashi jimenes * [facility]acy [facility] * Preadmission Environment Home Alone * ADLs Independent * Equipment None * Community resources currently utilized None * Additional services required to return to the preadmission environment? Yes * Can the patient safely return to the preadmission environment? Yes * Has this patient been hospitalized within the prior 30 days at any hospital? No Last DP export: 10/28/19 5:08 p Patient Name: ALMAZ HICKEY Page [phone] at 1815 All edits/amendments must be made on the electronic document DICTATION DATE: 10/28/191813 MESSAGING ARCHITECT: JIMBO 10/28/191813 RPT#: [id number] DC DATE: STATUS: ADM IN [facility] [address] [place] [address] END OF REPORT
--- NOTE | 2019-10-28 18:21 | MORECARE ---
CASE MANAGEMENT DISCHARGE SUMMARY PATIENT: ALMAZ HICKEY UNIT: [id number] ADM DATE: 10/17/19 AGE: 69 : 52 SEX: F ROOM/BED: D.9804 AUTHOR: TRACY,DOC PHYSICIAN: REFERRING PHYSICIAN: JAKE PEREZ MD DATE OF SERVICE: 10/28/19 Discharge Plan Patient Name: ALMAZ HICKEY Facility: [facility]:[place] : 1950 Planned Disposition: Anticipated Discharge Date: Discharge Date: Expected LOS: Initial Reviewer: [email or web address] Initial Review Date: 10/17/2019 Generated: 10/28/19 7:21 pm Comments DCP- Discharge Planning Updated by [email or web address]: Deidra Brewer on 10/28/19 5:[address] Patient Name: ALMAZ HICKEY Admission Status: Elective Accout number: [id number] Admission Date: 10-17-2019 : 1950 Admission Diagnosis:COVID-19 Attending: ANA, Current LOS: 11 Anticipated DC Date: Planned Disposition: Primary Insurance: [employer] CHOICE PPO MCR ADVANT Discharge Planning Comments: CM called patient room to complete initial dc planning assessment. CM educated patient on the CM role and verbal consent given by patient to complete assessment. CM verified patient's address, phone number, and emergency contact phone numbers. Patient lives at home alone and is independent. At discharge patient plans to return home and feels this is a safe discharge. CM discussed availability of home health, rehab services, and medical equipment. Patient states she has skyla increasingly weak while in the hospital, and would like home health. Denies any use for ambulation aides. CM anticipates home oxygen use. Pt is in agreement for home oxygen if she needs it. SAROJ verbalized for [facility] and [facility]. CM spoke with Anna at [phone] from [employer] [facility] and faxed referral. CM also spoke to Raffaele at [facility] at [phone] for referral. Raffaele states an 0xygen tank will be present within the hour. Transportation provider at discharge will be family. CM will continue to follow and will assist as needed with dc plans/needs. Boat Ride Operator: Deidra Brewer DCPIA - Discharge Planning Initial Assessment Updated by [email or web address]: Deidra Brewer on 10/28/19 6:10 pm * Is the patient Alert and Oriented? Yes * How many steps to enter\exit or inside your home? 0/0 * PCP urvashi jimenes * [facility] * Preadmission Environment Home Alone * ADLs Independent * Equipment None * Community resources currently utilized None * Additional services required to return to the preadmission environment? Yes * Can the patient safely return to the preadmission environment? Yes * Has this patient been hospitalized within the prior 30 days at any hospital? No Coverage Notice Reviewer: [email or web address] Zayra Brewer Notice Issued Date-Time: 10/28/2019 16:00 Notice Type: IM Discharge Notice Notice Delivered To: Patient Relationship to Patient: Seo Analyst Name: Delivery Method: PHONE - Phone Nabila Days: Prior Verbal Notification: Yes Recipient Understood Notice: Yes Recipient Signature: Med Rec Note Co-signed by Attending: Coverage Notice Comment: DC IMM DELIVERED VIA PHONE. PT VERBALIZED UNDERSTNDING. COPY LEFT WITH PT Reviewer: [email or web address] Zayra Brewer Notice Issued Date-Time: 10/28/2019 16:00 Notice Type: Patient Choice Letter Notice Delivered To: Patient Relationship to Patient: Seo Analyst Name: Delivery Method: PHONE - Phone Nabila Days: Prior Verbal Notification: Recipient Understood Notice: Yes Recipient Signature: Med Rec Note Co-signed by Attending: Coverage Notice Comment: [facility] Last DP export: 10/28/19 5:15 p Patient Name: ALMAZ HICKEY Page [phone] at 1821 All edits/amendments must be made on the electronic document DICTATION DATE: 10/28/191820 DOT COMPLIANCE COORDINATOR: JIMBO 10/28/191820 RPT#: [id number] DC DATE: STATUS: ADM IN [facility] [address] [place] [address] END OF REPORT
--- NOTE | 2019-10-28 19:11 | NUR ---
AWAKE AND READY FOR DC BUT FAMILY HAS CALLED AND SAID THEY WILL NOT COME TO GET PT TONIGHT I WILL CONT FOR NOW TO TREAT A PT AND SEE TO ALL NEEDS BED LOW AND LOCKED CONT TO OBSERVE DROPLET ISOLATION
--- NOTE | 2019-10-28 19:29 | NUR ---
PT'S DISCHARGE INSTRUCTIONS PRINTED OFF AND DAUGHTER KAYLA CALLED AT [phone]. UNABLE TO COME FROM [facility] FOR TRANSPORT HOME TONITE DUE TO CHILDREN AT HOME AND AT WORK. OXYGEN FOR HOME IN ROOM.
[2019-10-29 07:51] VITALS: BP 135/45
--- NOTE | 2019-10-29 09:39 | NUR ---
RECEIVE SHIFT REPORT AT 0715. RESTING IN BED WITH LIGHTS OFF. STATES SHE IS READY TO GO HOME BUT NEEDS A RIDE. CALLED HER DAUGHTER WHO STATES SHE WILL NEED TRANSPORTATION. SPOKE WITH CASE MANAGEMENT TO FOLLOW UP WITH PLANS. WILL CONTINUE PLAN OF CARE AND SAFETY PRECAUTIONS.
--- NOTE | 2019-10-29 15:20 | NUR ---
D/C IV, TIP INTACT. DISCHARGE INSTRUCTIONS GIVEN VISUALLY AND VERBALLY. TAKEN OUT TO FAMILY AT THE ED EXIT VIA WHEELCHAIR. REMAINS FREE FROM INJURY.
--- NOTE | 2019-10-29 20:14 | MORECARE ---
CASE MANAGEMENT DISCHARGE SUMMARY PATIENT: ALMAZ HICKEY UNIT: [id number] ADM DATE: 10/17/19 AGE: 69 : 54 SEX: F ROOM/BED: D.0819 AUTHOR: TRACY,DOC PHYSICIAN: REFERRING PHYSICIAN: JAKE PEREZ MD DATE OF SERVICE: 10/29/19 Discharge Plan Patient Name: ALMAZ HICKEY Facility: [facility]:[place] : 1950 Planned Disposition: Anticipated Discharge Date: Discharge Date: 10/29/2019 Expected LOS: Initial Reviewer: [email or web address] Initial Review Date: 10/17/2019 Generated: 10/29/19 9:13 pm Comments DCP- Discharge Planning Updated by [email or web address]: Deidra Brewer on 10/28/19 5:[address] Patient Name: ALMAZ HICKEY Admission Status: Elective Accout number: [id number] Admission Date: 10-17-2019 : 1950 Admission Diagnosis:COVID-19 Attending: ANA, Current LOS: 11 Anticipated DC Date: Planned Disposition: Primary Insurance: [employer] P[employer] Discharge Planning Comments: CM called patient room to complete initial dc planning assessment. CM educated patient on the CM role and verbal consent given by patient to complete assessment. CM verified patient's address, phone number, and emergency contact phone numbers. Patient lives at home alone and is independent. At discharge patient plans to return home and feels this is a safe discharge. CM discussed availability of home health, rehab services, and medical equipment. Patient states she has skyla increasingly weak while in the hospital, and would like home health. Denies any use for ambulation aides. CM anticipates home oxygen use. Pt is in agreement for home oxygen if she needs it. SAROJ verbalized for [facility] and [facility] [place]. CM spoke with Anna at [phone] from [facility] and faxed referral. CM also spoke to Raffaele at [facility] [place] at [phone] for referral. Raffaele states an 0xygen tank will be present within the hour. Transportation provider at discharge will be family. CM will continue to follow and will assist as needed with dc plans/needs. Product Safety Coordinator: Deidra Brewer DCPIA - Discharge Planning Initial Assessment Updated by [id number]: Deidra Brewer on 10/28/19 6:10 pm * Is the patient Alert and Oriented? Yes * How many steps to enter\exit or inside your home? 0/0 * PCP urvashi jimenes * [facility] * Preadmission Environment Home Alone * ADLs Independent * Equipment None * Community resources currently utilized None * Additional services required to return to the preadmission environment? Yes * Can the patient safely return to the preadmission environment? Yes * Has this patient been hospitalized within the prior 30 days at any hospital? No Coverage Notice Reviewer: [email or web address] Zayra Brewer Notice Issued Date-Time: 10/28/2019 16:00 Notice Type: IM Discharge Notice Notice Delivered To: Patient Relationship to Patient: Operator [employer] Name: Delivery Method: PHONE - Phone Nabila Days: Prior Verbal Notification: Yes Recipient Understood Notice: Yes Recipient Signature: Med Rec Note Co-signed by Attending: Coverage Notice Comment: DC IMM DELIVERED VIA PHONE. PT VERBALIZED UNDERSTNDING. COPY LEFT WITH PT Reviewer: [id number] Zayra Brewer Notice Issued Date-Time: 10/28/2019 16:00 Notice Type: Patient Choice Letter Notice Delivered To: Patient Relationship to Patient: [employer] Name: Delivery Method: PHONE - Phone Nabila Days: Prior Verbal Notification: Recipient Understood Notice: Yes Recipient Signature: Med Rec Note Co-signed by Attending: Coverage Notice Comment: [facility] Last DP export: 10/28/19 5:21 p Patient Name: ALMAZ HICKEY Page [id number] at 2014 All edits/amendments must be made on the electronic document DICTATION DATE: 10/29/192012 PIT SUPERVISOR: JIMBO 10/29/192012 RPT#: [id number] DC DATE:10/29/19 STATUS: DIS IN [facility] [address] [place] [address] END OF REPORT
== END 2019-10-29 15:20 | disposition home health service (06) | DRG 871 ==
LOC: D.M2 18:00
PROVIDERS: Family Medicine; Internal Medicine Pulmonary Disease; ADMIT Family Medicine; ATTEND Family Medicine
PROC: XW043E5 Introduction of Remdesivir Anti-infective into Central Vein, Percutaneous Approach, New Technology Group 5 (ICD-10-PCS; 2019-10-20)
PROC: 05HB33Z Insertion of Infusion Device into Right Basilic Vein, Percutaneous Approach (ICD-10-PCS; principal; 2019-10-21)
PROC: B54MZZA Ultrasonography of Right Upper Extremity Veins, Guidance (ICD-10-PCS; 2019-10-21)
DX: A41.9 Sepsis, unspecified organism (principal); U07.1 COVID-19; J96.22 Acute and chronic respiratory failure with hypercapnia; J12.89 Other viral pneumonia; J44.0 Chronic obstructive pulmonary disease with (acute) lower respiratory infection; J44.1 Chronic obstructive pulmonary disease with (acute) exacerbation; M54.9 Dorsalgia, unspecified; G89.29 Other chronic pain; K75.9 Inflammatory liver disease, unspecified; K76.89 Other specified diseases of liver; D69.6 Thrombocytopenia, unspecified